=== PATIENT | male | born 1955 | race Two or more races ===

== ENCOUNTER 2020-09-25 09:56 | Outpatient (CLI) | payer OTHER | END 2020-09-25 10:00 | disposition home or self-care (01) | LOC: SONOGRAMA 09:56 | PROVIDERS: ATTEND Pathology Anatomic Pathology & Clinical Pathology | DX: D34 Benign neoplasm of thyroid gland (principal); E04.2 Nontoxic multinodular goiter; E04.8 Other specified nontoxic goiter ==